=== PATIENT | male | born 1955 | race Caucasian/White ===

== ENCOUNTER → 2016-03-13 | Outpatient (CLI) | payer BC ==
[~2016-03-13] MED LIST: GLUCTAB7 PO; IBUP-1105 PO; METH1CAP PO; MULT-506 PO
[2016-03-13 14:37] LABS: BASO % 0.6 %; BASO ABS # 0.05 K/uL (0-0.2); COMPLETE YES; EOS % 2.3 %; HEMATOCRIT 42.5 % (42-52); IG% 0.2 %; LYMPH % 30.6 %; MEAN CELL VOLUME 88.2 fL (80-100); MEAN CORPUSCULAR HEMOGLOBIN 30.1 pg (25-34); MEAN CORPUSCULAR HGB CONC 34.1 g/dl (32-36); MEAN PLATELET VOLUME 10.9 fL (7.4-10.4); MONO % 7.6 %; NEUT % 58.7 %; PLATELET COUNT 269 K/uL (130-400); RED BLOOD COUNT 4.82 M/uL (4.7-6.1); WHITE BLOOD COUNT 8.18 K/uL (4.8-10.8)
[2016-03-17 16:42] LABS: C1 ESTERASE INHIB TC298 32 mg/dL (21-39)
== END | disposition home or self-care (01) ==
LOC: C.LAB1850 12:57
PROVIDERS: ATTEND Internal Medicine Pulmonary Disease
DX: T78.40XA Allergy, unspecified, initial encounter (principal); T88.7XXA Unspecified adverse effect of drug or medicament, initial encounter; T78.3XXA Angioneurotic edema, initial encounter; X58.XXXA Exposure to other specified factors, initial encounter

== ENCOUNTER → 2017-06-19 | Outpatient (CLI) | payer BC, OTHER ==
[2017-06-19 16:25] LABS: BASO % 1.1 %; BASO ABS # 0.07 K/uL (0-0.2); EOS % 1.4 %; EOS ABS # 0.09 K/uL (0-0.5); HEMATOCRIT 41.6 % (42-52); HEMOGLOBIN 14.2 g/dL (14.0-18.0); IG# 0.01 K/uL (0.00-0.02); LYMPH ABS # 2.08 K/uL (1.2-3.4); MEAN CELL VOLUME 89.1 fL (80-100); MEAN CORPUSCULAR HEMOGLOBIN 30.4 pg (25-34); MEAN CORPUSCULAR HGB CONC 34.1 g/dl (32-36); MEAN PLATELET VOLUME 10.4 fL (7.4-10.4); MONO % 8.6 %; MONO ABS # 0.56 K/uL (0.11-0.59); NEUT % 56.7 %; NEUT ABS # 3.68 K/uL (1.4-6.5); PLATELET COUNT 286 K/uL (130-400); RED CELL DISTRIBUTION WIDTH CV 13.7 % (11.5-14.5); RED CELL DISTRIBUTION WIDTH SD 44.4 fL (36.4-46.3); WHITE BLOOD COUNT 6.49 K/uL (4.8-10.8)
[2017-06-19 16:38] LABS: ALBUMIN 4.2 gm/dl (3.4-5.0); ALT/SGPT 37 U/L (12-78); BLOOD UREA NITROGEN 23 mg/dl (7-18); CALCIUM 9.3 mg/dl (8.5-10.1); CARBON DIOXIDE 24 mmol/L (21-32); CHOLESTEROL 202 mg/dl (0-200); CREATININE 0.98 mg/dl (0.60-1.40); GLUCOSE 77 mg/dl (70-99); POTASSIUM 4.6 mmol/L (3.5-5.1); SODIUM 138 mmol/L (136-145)
[2017-06-19 16:42] LABS: ALKALINE PHOSPHATASE 47 U/L (45-117); AST/SGOT 29 U/L (15-37); LDL CHOLESTEROL CALCULATED 133 mg/dl; TOTAL PROTEIN 7.7 gm/dl (6.4-8.2)
== END | disposition home or self-care (01) ==
LOC: C.LABBFT 12:29
PROVIDERS: ATTEND Internal Medicine
DX: E78.5 Hyperlipidemia, unspecified (principal); Z12.5 Encounter for screening for malignant neoplasm of prostate

== ENCOUNTER 2019-10-20 07:17 | Inpatient (IN) ==
[2019-10-20] MEDS ORDERED: ONDANSETRON INJ 2 MG/ML 2 ML VIAL IV STA (07:44)
[2019-10-20] MEDS ORDERED: DIAZEPAM 5 MG/ML INJ 10ML VIAL IV STA ×2 (07:44→08:51)
--- NOTE | 2019-10-20 07:48 | Emergency Department Note ---
General (ED) Blank Date of Service October 20, 2019 Ian Garcia DO PGY-3, saw and participated in the care of this patient. Resident Activity Tracking Resident Involvement: Resident Care Provided Care Provided: Adult ED
[2019-10-20] MEDS: SODIUM CHLORIDE 0.9% 1000ML 1,000 ML IV SCH ×3 (07:57→17:22)
[2019-10-20 07:58] LABS: Basophils # (auto) 0.01 K/uL (0-0.2); Basophils % (auto) 0.1 %; Eosinophils # (auto) 0.01 K/uL (0-0.5); Eosinophils % (auto) 0.1 %; Hematocrit (blood only) 36.5 % (42-52); Hemoglobin 11.9 g/dL (14.0-18.0); Immature Granulocytes # (auto) 0.03 K/uL (0.00-0.02); Immature Granulocytes % (auto) 0.3 %; Lymphocytes # (auto) 1.27 K/uL (1.2-3.4); Lymphocytes % (auto) 10.7 %; Mean Corpuscular Hemoglobin 26.5 pg (25-34); Mean Corpuscular Hgb Conc 32.6 g/dL (32-36); Mean Corpuscular Volume 81.3 fL (80-100); Mean Platelet Volume 10.5 fL (7.4-10.4); Monocytes # (auto) 0.64 K/uL (0.11-0.59); Monocytes % (auto) 5.4 %; Neutrophils # (auto) 9.86 K/uL (1.4-6.5); Neutrophils % (auto) 83.4 %; Platelet Count 237 K/uL (130-400); RDW Coefficient of Variation 14.6 % (11.5-14.5); RDW Standard Deviation 43.1 fL (36.4-46.3); Red Blood Count 4.49 M/uL (4.7-6.1); White Blood Count 11.82 K/uL (4.8-10.8)
[2019-10-20 08:04] LABS: Alanine Aminotransferase 27 U/L (12-78); Albumin Level 3.5 gm/dl (3.4-5.0); Aspartate Aminotransferase 39 U/L (15-37); BUN Creatinine Ratio 14.2 (10-20); Blood Urea Nitrogen 13 mg/dl (7-18); Calcium 8.7 mg/dl (8.5-10.1); Carbon Dioxide 26 mmol/L (21-32); Chloride 104 mmol/L (98-107); Est GFR (African American) 99.5; Est GFR (Non-African American) 85.8; Glucose 112 mg/dl (70-99); Potassium 3.8 mmol/L (3.5-5.1); Sodium 136 mmol/L (136-145)
[2019-10-20 08:09] LABS: Alkaline Phosphatase 42 U/L (45-117); Bilirubin,Total 0.7 mg/dl (0.2-1); Globulin 3.7 gm/dl (2.5-4.0); Total Protein 7.2 gm/dl (6.4-8.2); Troponin I < 0.015 ng/ml (0-0.045)
--- NOTE | 2019-10-20 09:54 | Magnetic Resonance Report ---
MR ANGIOGRAM OF THE BRAIN CLINICAL HISTORY: Dizziness. COMPARISON STUDY: MRI of the brain performed concurrently on 11/06/2019. TECHNIQUE: 3-D [id number] MR angiography of the intracranial circulation is performed. 3-D tumble views are created and assessed. IV contrast was not administered for this examination. The examinati on is degraded by motion artifact. FINDINGS: The internal carotid arteries are widely patent bilaterally, as are the anterior and middle cerebral arteries. The vertebrobasilar system and posterior cerebral arteries are widely patent. The vertebral arteries are codominant. There is no aneurysm, high-grade stenosis, or focal vessel cutoff seen throughout the intracranial circulation. Parenchymal abnormality is noted in the right temporal lobe. IMPRESSION: 1. Unremarkable MR angiogram of the brain noting a motion degraded examination. 2. Parenchymal abnormality is noted in the right temporal lobe. Correlate with the concurrently perfo rmed MRI of the brain. ACT 112: Negative or not required by law. Electronically signed by: Bruce Yang M.D. 10/20/2019 9:53 AM
[2019-10-20] MEDS ORDERED: GADOBUTROL 65ML VIAL IV ONE (10:02)
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
[2019-10-20 12:11] LABS: Lyme Ab IgG w/WB Rflx Negative (Negative); Lyme Ab IgM w/WB Rflx Negative (Negative)
[2019-10-20] MEDS ORDERED: ACYCLOVIR SOD 1,000 MG in DEXTROSE 5% 250 ML IV ONE (12:36)
[2019-10-20] MEDS ORDERED: VANCOMYCIN CONSULT ACTIVE PRN (12:36)
[2019-10-20] MEDS ORDERED: VANCOMYCIN HCL 2,750 MG in SODIUM CHLORIDE 0.9% 500 ML IV ONE (12:36)
[2019-10-20] MEDS ORDERED: cefTRIAXone SODIUM 2,000 MG/70 ML BAG IV STA (12:36)
[2019-10-20] MEDS ORDERED: AMPICILLIN 2,000 MG in SODIUM CHLOR 0.9% AD-VAN 100 ML IV STA (12:38)
[2019-10-20] MEDS ORDERED: DEXAMETHASONE SOD INJ 10 MG/ML VIAL IV STA (12:57)
[2019-10-20] MEDS ORDERED: HYDROmorphone INJ 0.5 MG/0.5 ML SYR ONE (13:05)
[2019-10-20 13:15] LABS: CSF Glucose 56 mg/dl (40-70); Total Protein CSF 151.5 mg/dl (15-45)
[2019-10-20 13:18] LABS: CSF Chemistry Tube # 1
[2019-10-20 13:19] LABS: Appearance CSF HAZY; Color CSF PINK; Mononuclear WBC CSF 83.3 %; Polynuclear WBC CSF 16.7 %; Red Blood Cell CSF (A) 4000 /uL (0-); White Blood Cell CSF (A) 12 /uL (0-5)
[2019-10-20 13:20] LABS: CSF Count Tube # 3; CSF Xanthrochromic Xanthochromic
--- NOTE | 2019-10-20 14:03 | History & Physical Report ---
Date of Service October 20, 2019 History of Present Illness Primary Care Provider: Myles Jaimes MD Allergies Allergy/AdvReac Type Severity Reaction Status Date / Time chlorpheniramine Allergy Unknown tongue Unverified 10/18/19 10:53 swelling phenylpropanolamine Allergy Unknown tongue Unverified 10/18/19 10:53 swelling Home Medications Home Medications Medication Instructions Recorded Confirmed Type uothzhsrsws-yqb-avrpzktdd-vitC 1 cap PO QAM 04/07/19 10/20/19 History [Glucosamine Complex-MSM] multivitamin 1 tab PO QAM 04/07/19 10/20/19 History ondansetron HCl [Zofran] 4 mg PO TID PRN 5 Days #15 tab 10/18/19 10/20/19 Rx oxycodone [Roxicodone] 5 mg PO Q8H PRN #9 tab 10/18/19 10/20/19 Rx acetaminophen 1,000 mg PO Q6H PRN 10/20/19 10/20/19 History ibuprofen 200 mg PO Q6H PRN 10/20/19 10/20/19 History Past Med/Surg History Medical History (Updated 10/18/19 @ 15:41 by Eliud Costa MD) History of angioedema reports multiple episdoes tongue swelling in the past. reports unable to pinpoint cause. last episode in mar/apr 2019 while ill with flu-like symptoms; resolved with antihistamine Osteoarthritis Shingles "small patch over my rib cage on the right side" x 1 week Surgical History History of colonoscopy History of oral surgery Family History Brother Alcoholism Father Prostate cancer Coronary heart disease Myocardial infarction Mother Hypertension Sister Diabetes Family/Other Breast cancer Other No family history of adverse response to anesthesia Denies family history of Ovarian cancer Colorectal cancer Social History Smoking Status: Never smoker Cigarettes Per Day: former social smoker; Second Hand Exposure: Yes (PREVIOUS EXPOSURE); Hx Alcohol Use: Yes Alcohol type: beer, wine and hard liquor Hx Substance Use: No Preferred Language: Swedish Communication Ability: Effective Plastic Fabricator Required: No Beliefs That Will Affect Care: None marital status: single Current Living Situation: Alone current occupational status: retired Feels Safe at Home: Yes Dental Care, Regularly: Yes Physical Activity Frequency: 3-4 Times per Week Seatbelt Use: always Sunscreen Use: Yes Results & Data Results & Data ([facility]) Vital Signs (Past 12 Hours) Vital Signs Temp Pulse Pulse Resp BP BP Pulse Ox 10/20/19 13:00 56 L 18 150/86 H 96 10/20/19 12:30 53 L 18 169/98 H 98 10/20/19 11:00 53 L 18 159/98 H 98 10/20/19 10:11 55 L 18 137/86 97 10/20/19 08:30 48 L 17 121/72 96 10/20/19 08:00 56 L 18 146/86 H 97 10/20/19 07:25 36.9 C 57 L 14 140/89 96 PG Care Time/CCT Total # of Minutes Spent Total Time Spent with Patient: Total time spent is greater than 50% in coordination of care (as documented) at patient's floor/unit and/or counseling patient: Coding
[2019-10-20] MEDS ORDERED: ACETAMINOPHEN 325 MG TAB PO PRN ×2 (14:23→16:39)
[2019-10-20] MEDS ORDERED: ALUMINUM/MAGNESIUM SUSP 30 ML UDC PO PRN ×2 (14:23→16:39)
[2019-10-20] MEDS ORDERED: MAGNESIUM HYDROXIDE SUSP 30 ML UDC PO PRN ×2 (14:23→16:39)
[2019-10-20] MEDS ORDERED: ONDANSETRON INJ 2 MG/ML 2 ML VIAL IV PRN ×2 (14:23→16:39)
[2019-10-20 14:24] LABS: Appearance CSF HAZY; Color CSF PINK; Red Blood Cell CSF (A) 4000 /uL (0-); White Blood Cell CSF (A) 10 /uL (0-5)
[2019-10-20 14:25] LABS: CSF Count Tube # 4
[2019-10-20 14:29] LABS: Cryptococcus neoformans/ga PCR Not Detected (NotDetected); Cytomegalovirus PCR Not Detected (NotDetected); Enterovirus PCR Not Detected (NotDetected); Escherichia coli K1 PCR Not Detected (NotDetected); Haemophilius influenzae PCR Not Detected (NotDetected); Herpes Simplex Virus 1 PCR Not Detected (NotDetected); Herpes Simplex Virus 2 PCR Not Detected (NotDetected); Human Herpes Virus 6 PCR Not Detected (NotDetected); Human Parechovirus PCR Not Detected (NotDetected); Listeria monocytogenes PCR Not Detected (NotDetected); Neisseria meningitidis PCR Not Detected (NotDetected); Streptococcus agalactiae PCR Not Detected (NotDetected); Streptococcus pneumoniae PCR Not Detected (NotDetected); Varicella Zoster Virus PCR Not Detected (NotDetected)
[2019-10-20 14:32] LABS: CSF Xanthrochromic Xanthochromic
[2019-10-20] MEDS ORDERED: PROPARACAINE 0.5% OP SOLN PER DROP CHARGE OP ONE (14:36)
[2019-10-20] MEDS ORDERED: PROPARACAINE 0.5% 225 DROPS/15 ML BTL ONE (15:35)
[2019-10-20] MEDS ORDERED: NITROGLYCERIN SL 0.4 MG/TAB TAB SL PRN (16:39)
[2019-10-20] MEDS ORDERED: ZOLPIDEM TARTRATE 5 MG TAB PO PRN (16:39)
[2019-10-20] MEDS ORDERED: MoRPHine SULFATE 2 MG/ML CARP IV PRN (16:39)
[2019-10-20] MEDS ORDERED: POLYETHYLENE (MIRALAX) 17 GM PACK PO PRN (16:39)
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
[2019-10-20] MEDS ORDERED: MECLIZINE HCL 25 MG TAB PO STA (17:58)
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
[2019-10-20] MEDS: AMPICILLIN 2,000 MG in SODIUM CHLOR 0.9% AD-VAN 100 ML IV SCH ×2 (18:37→23:00)
[2019-10-20] MEDS: VANCOMYCIN HCL 1,250 MG in SODIUM CHLORIDE 0.9% 250 ML IV SCH (20:38)
[2019-10-20] MEDS: ACYCLOVIR SOD 1,000 MG in DEXTROSE 5% 250 ML IV SCH (20:41)
--- NOTE | 2019-10-21 00:33 | Communication Note ---
Date of Service: October 21, 2019 Pt with R eye discomfort since MRI. Reported he tried to move/take of his mask which slipped and rubbed against his eye.On assessment visual acuity intact and sharp at 6 feet, pt denies visual change. PERLAA, EoM intact without pain. no scleral injection. Pt reports eye is 'uncomfortable'. Fluorescein dye exam performed, small corneal defect just lateral to the pupil appreciated. Counseling provided, pt started on erythromycin ointment OP QID. Do not recommend opthalmic analgesic topical (pt was using drops he had gotten earlier) as these can delay healing/epithelialization.
[2019-10-21] MEDS: ERYTHROMYCIN OP OINT 5 MG/GM 3.5 GM TUBE OP SCH ×5 (01:13→20:47)
[2019-10-21] MEDS: cefTRIAXone SODIUM 2,000 MG in DEXTROSE 5% 50 ML IV SCH ×3 (01:13→23:46)
[2019-10-21] MEDS: AMPICILLIN 2,000 MG in SODIUM CHLOR 0.9% AD-VAN 100 ML IV SCH ×6 (02:45→20:48)
[2019-10-21] MEDS: SODIUM CHLORIDE 0.9% 1000ML 1,000 ML IV SCH (03:05)
[2019-10-21] MEDS: ACYCLOVIR SOD 1,000 MG in DEXTROSE 5% 250 ML IV SCH ×3 (04:22→20:47)
[2019-10-21] MEDS: VANCOMYCIN HCL 1,250 MG in SODIUM CHLORIDE 0.9% 250 ML IV SCH ×3 (04:24→20:47)
--- NOTE | 2019-10-21 06:21 | Electrocardiogram Report ---
Test Reason : Blood Pressure : / mmHG Vent. Rate : 056 BPM Atrial Rate : 056 BPM P-R Int : 174 ms QRS Dur : 100 ms QT Int : 424 ms P-R-T Axes : 021 033 028 degrees QTc Int : 409 ms Sinus bradycardia Possible Left atrial enlargement Left ventricular hypertrophy Abnormal ECG When compared with ECG of 18-OCT-2019 09:56, No significant change was found Confirmed by Mac Fournier ([id number]) on 10/21/2019 6:21:13 AM Referred By: REFERRED SELF Confirmed By:Mac Fournier
[2019-10-21] MEDS ORDERED: MoRPHine SULFATE 2 MG/ML CARP IV PRN (07:17)
[2019-10-21] MEDS ORDERED: ONDANSETRON INJ 2 MG/ML 2 ML VIAL IV PRN (07:17)
[2019-10-21 07:32] LABS: Creatinine Clr Calc Pharmacy 92.2 ml/min; Est GFR (African American) 94.6; Est GFR (Non-African American) 81.6
[2019-10-21 07:41] LABS: Basophils # (auto) 0.01 K/uL (0-0.2); Basophils % (auto) 0.1 %; Hematocrit (blood only) 31.8 % (42-52); Hemoglobin 10.4 g/dL (14.0-18.0); Immature Granulocytes # (auto) 0.02 K/uL (0.00-0.02); Immature Granulocytes % (auto) 0.2 %; Lymphocytes # (auto) 1.27 K/uL (1.2-3.4); Lymphocytes % (auto) 11.3 %; Mean Corpuscular Hemoglobin 26.7 pg (25-34); Mean Corpuscular Hgb Conc 32.7 g/dL (32-36); Mean Corpuscular Volume 81.5 fL (80-100); Mean Platelet Volume 10.6 fL (7.4-10.4); Monocytes # (auto) 1.07 K/uL (0.11-0.59); Monocytes % (auto) 9.5 %; Neutrophils % (auto) 78.9 %; Platelet Count 227 K/uL (130-400); RDW Coefficient of Variation 14.7 % (11.5-14.5); RDW Standard Deviation 43.1 fL (36.4-46.3); White Blood Count 11.27 K/uL (4.8-10.8)
[2019-10-21 07:42] LABS: BUN Creatinine Ratio 12.8 (10-20); Calcium 8.4 mg/dl (8.5-10.1); Creatinine Clr Calc Pharmacy 91.2 ml/min; Est GFR (African American) 93.4; Est GFR (Non-African American) 80.6; Potassium 3.9 mmol/L (3.5-5.1)
[2019-10-21] MEDS: LIDOCAINE 5% 1 PATCH TD SCH (09:26)
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
[2019-10-21] MEDS ORDERED: VANCOMYCIN TROUGH ONE (11:30)
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
--- NOTE | 2019-10-21 13:39 | Pharmacy Report ---
Pharmacy Abx Dose Progress Nt - Date of Service October 21, 2019 - Pharmacy Dosing Scope The patient is currently receiving the following antimicrobial agents per Pharmacy consult: Vancomycin 1,250 mg IV every 8 hours Pt is also receiving (not per pharm consult) Acyclovir 1,000 mg IV Q8hrs Ampicilin 2,000 mg IV Q4hrs Ceftriaxone 2,000 mg IV Q12hrs - Objective Vital Signs (Past 12hrs): Vital Signs Temp Pulse Pulse Resp BP Pulse Ox 10/21/19 07:39 36.7 C 57 L 17 164/87 H 97 10/21/19 03:03 37 C 59 L 18 156/84 H 95 Lab Results (24hrs): Laboratory Tests (24 Hours) 10/21/19 10/21/19 10/21/19 11:19 06:49 06:49 WBC 11.27 H Neut # (Auto) 8.90 H Creatinine 0.98 Est Cr Clr Drug Dosing 91.2 Vancomycin Trough 13.5 10/21/19 06:49 WBC Neut # (Auto) Creatinine 0.97 Est Cr Clr Drug Dosing 92.2 Vancomycin Trough Micro Results: 10/20/19 12:15 Gram Stain - Final Cerebral Spinal Fluid - Assessment & Plan Assessment 64 year old M receiving Vanco/Acyclovir/Ampicillin/Ceftriaxone for treatment of possible meningitis Day # 2 of antimicrobial therapy Plan Vancomycin IV * Trough level of 13.5 mcg/mL is slightly subtherapeutic; however, dosing is not yet at steady state. Additional vancomycin accumulation likely to occur with repeated dosing. * Continue dose of 1,250 mg IV every 8 hours * Goal trough level for meningitis : 15 to 20 mcg/mL * Repeat Trough level ordered for: 10/22/19 @ 1200 (prior to 6th maintenance dose) No changes needed to Acyclovir/Ampicillin/Ceftriaxone dosing Pharmacy will continue to follow and will adjust dose/frequency as necessary. Thank you.
[2019-10-21] MEDS: MECLIZINE HCL 25 MG TAB PO PRN ×2 (14:31→22:38)
[2019-10-21] MEDS: LACTOBACILLUS ACIDOPHILUS (FLORANEX) TAB PO SCH (16:51)
[2019-10-22] MEDS: AMPICILLIN 2,000 MG in SODIUM CHLOR 0.9% AD-VAN 100 ML IV SCH ×4 (02:30→14:29)
[2019-10-22] MEDS: ACETAMINOPHEN 325 MG TAB PO PRN ×2 (03:38→12:10)
[2019-10-22] MEDS: VANCOMYCIN HCL 1,250 MG in SODIUM CHLORIDE 0.9% 250 ML IV SCH (03:39)
[2019-10-22] MEDS: ACYCLOVIR SOD 1,000 MG in DEXTROSE 5% 250 ML IV SCH ×2 (05:14→14:28)
[2019-10-22] MEDS: MECLIZINE HCL 25 MG TAB PO PRN ×2 (06:26→17:12)
[2019-10-22] MEDS: LACTOBACILLUS ACIDOPHILUS (FLORANEX) TAB PO SCH ×3 (07:34→17:13)
[2019-10-22] MEDS: OMEGA-3 (PURIFIED FISH OIL) 1 GM CAP PO SCH ×2 (07:34→20:24)
[2019-10-22] MEDS: POLYETHYLENE (MIRALAX) 17 GM PACK PO PRN (07:34)
[2019-10-22] MEDS: ERYTHROMYCIN OP OINT 5 MG/GM 3.5 GM TUBE OP SCH ×4 (07:35→20:24)
[2019-10-22] MEDS: LIDOCAINE 5% 1 PATCH TD SCH (07:35)
[2019-10-22] MEDS ORDERED: VANCOMYCIN TROUGH ONE (11:30)
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
[2019-10-22 12:41] LABS: Creatinine Clr Calc Pharmacy 95.3 ml/min; Est GFR (Non-African American) 83.7
[2019-10-22] MEDS: levETIRAcetam 500 MG TAB PO SCH ×2 (12:56→20:24)
--- NOTE | 2019-10-22 13:12 | Pharmacy Report ---
Pharmacy Abx Dose Short Note - Date of Service October 22, 2019 - Assessment & Plan Assessment 64 year old M receiving Vanco/Acyclovir/Ampicillin/Ceftriaxone for treatment of possible meningitis Day # 3 of antimicrobial therapy Plan Vancomycin * Trough level of 14.0 mcg/mL is subtherapeutic. * Change to 1500 mg (15mg/kg) IV every 8 hours * Goal trough level for meningitis : 15 to 20 mcg/mL * Trough level ordered for: 10/23/19 @1330 Pt will continue Acyclovir/Ampicillin/Ceftriaxone dosing as ordered Pharmacy will continue to follow and will adjust dose/frequency as necessary. Thank you.
[2019-10-22] MEDS ORDERED: VANCOMYCIN HCL 1,500 MG in SODIUM CHLORIDE 0.9% 500 ML IV SCH (14:00)
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
[2019-10-22] MEDS: cefTRIAXone SODIUM 2,000 MG in DEXTROSE 5% 50 ML IV SCH (14:28)
[2019-10-22] MEDS ORDERED: HydrALAZINE HCL 20 MG/ML VIAL IV PRN (16:29)
[2019-10-23] MEDS: MECLIZINE HCL 25 MG TAB PO PRN ×2 (01:15→10:50)
[2019-10-23] MEDS: ACETAMINOPHEN 325 MG TAB PO PRN ×3 (07:14→23:12)
[2019-10-23] MEDS: levETIRAcetam 500 MG TAB PO SCH ×2 (07:15→20:02)
[2019-10-23] MEDS: LACTOBACILLUS ACIDOPHILUS (FLORANEX) TAB PO SCH ×3 (07:15→18:33)
[2019-10-23] MEDS: ERYTHROMYCIN OP OINT 5 MG/GM 3.5 GM TUBE OP SCH ×4 (07:16→20:02)
[2019-10-23] MEDS: LIDOCAINE 5% 1 PATCH TD SCH (07:16)
[2019-10-23] MEDS: POLYETHYLENE (MIRALAX) 17 GM PACK PO PRN (07:16)
[2019-10-23] MEDS: OMEGA-3 (PURIFIED FISH OIL) 1 GM CAP PO SCH (07:16)
[2019-10-23 07:22] LABS: Basophils # (auto) 0.05 K/uL (0-0.2); Basophils % (auto) 0.6 %; Eosinophils # (auto) 0.19 K/uL (0-0.5); Eosinophils % (auto) 2.1 %; Hematocrit (blood only) 37.5 % (42-52); Hemoglobin 12.3 g/dL (14.0-18.0); Immature Granulocytes # (auto) 0.02 K/uL (0.00-0.02); Immature Granulocytes % (auto) 0.2 %; Lymphocytes # (auto) 1.54 K/uL (1.2-3.4); Lymphocytes % (auto) 17.1 %; Mean Corpuscular Hemoglobin 26.3 pg (25-34); Mean Corpuscular Hgb Conc 32.8 g/dL (32-36); Mean Corpuscular Volume 80.1 fL (80-100); Mean Platelet Volume 10.2 fL (7.4-10.4); Monocytes % (auto) 8.9 %; Neutrophils # (auto) 6.42 K/uL (1.4-6.5); Neutrophils % (auto) 71.1 %; Platelet Count 255 K/uL (130-400); RDW Coefficient of Variation 14.9 % (11.5-14.5); RDW Standard Deviation 42.5 fL (36.4-46.3); Red Blood Count 4.68 M/uL (4.7-6.1); White Blood Count 9.02 K/uL (4.8-10.8)
[2019-10-23 07:36] LABS: BUN Creatinine Ratio 14.1 (10-20); Calcium 8.3 mg/dl (8.5-10.1); Creatinine Clr Calc Pharmacy 107.6 ml/min; Est GFR (Non-African American) 92.3; Potassium 3.9 mmol/L (3.5-5.1)
--- NOTE | 2019-10-23 10:00 | CT Scan Report ---
CT head/brain wo con CLINICAL HISTORY: 64 years-old Male with head injury, headache. Acute head injury with headache TECHNIQUE: Multiple axial CT images of the head were obtained without contrast. A dose lowering tech nique was utilized adhering to the principles of ALARA. CT DOSE: 614.27 mGy.cm COMPARISON: Head CT 10/18/2019, brain MRI 10/20/2019 FINDINGS: No acute intracranial hemorrhage, midline shift or acute territorial infarct. Edema of the periventri cular right temporal lobe is redemonstrated which appears to have mild to moderately progressed from the 10/18/[address] This results in mild gyral expansion with sulcal effacement. Mild age-related involutional changes. The calvarium is intact. The paranasal sinuses, mastoid air cells, and middle ear cavities are clear . IMPRESSION: 1. No acute intracranial hemorrhage or midline shift. 2. Right temporal lobe edema redemonstrated, better characterized on comparison brain MRI from 020, most suspicious for a nonspecific encephalitis such as herpes encephalitis. The amount of edema has progressed from 10/18/2019. ACT 112: Negative or not required by law. The above report was generated using voice recognition software. It may contain grammatical, syntax o r spelling errors. Electronically signed by: eDshawn Shaffer M.D. 10/23/2019 9:59 AM
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
[2019-10-23] MEDS ORDERED: GADOBUTROL 65ML VIAL IV ONE (10:35)
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
[2019-10-23] MEDS ORDERED: VANCOMYCIN TROUGH ONE (13:30)
[2019-10-23] MEDS: dexAMETHasone 4 MG TAB PO SCH (14:33)
[2019-10-23] MEDS: ACYCLOVIR SOD 1,000 MG in DEXTROSE 5% 250 ML IV SCH ×2 (14:33→21:19)
--- NOTE | 2019-10-23 17:38 | Electroencephalogram ---
EEG Procedure Note Date of Service October 23, 2019 Start / End Times Start Time: 3:56 PM End Time: 4:16 PM Referring Physician Alberto Mejia MD History Right temporal lobe edema, encephalitis versus contusion, amnesia, encephalopathy Home Medication List Home Medications Medication Instructions Recorded Confirmed Type [id number] 1 cap PO QAM 04/07/19 10/20/19 History [Glucosamine Complex-MSM] multivitamin 1 tab PO QAM 04/07/19 10/20/19 History ondansetron HCl [Zofran] 4 mg PO TID PRN 5 Days #15 tab 10/18/19 10/20/19 Rx oxycodone [Roxicodone] 5 mg PO Q8H PRN #9 tab 10/18/19 10/20/19 Rx acetaminophen 1,000 mg PO Q6H PRN 10/20/19 10/20/19 History ibuprofen 200 mg PO Q6H PRN 10/20/19 10/20/19 History Inpatient Medication List Acetaminophen (Acetaminophen 325 Mg Tab) 650 mg PO Q6H PRN PRN Reason: Pain Stop: 11/20/19 07:16 Last Admin: 10/23/19 14:36 Dose: 650 mg Documented by: [id number] Admin: 10/23/19 07:14 Dose: 650 mg Documented by: [id number] Admin: 10/22/19 12:10 Dose: 650 mg Documented by: [id number] Admin: 10/22/19 03:38 Dose: 650 mg Documented by: [id number] Dexamethasone (Dexamethasone 4 Mg Tab) 4 mg PO DAILY [facility] Stop: 11/22/19 13:14 Last Admin: 10/23/19 14:33 Dose: 4 mg Documented by: [id number] Erythromycin (Erythromycin Op Oint 5 Mg/Gm 3.5 Gm Tube) 1 appln OP QID [facility] Stop: 10/31/19 08:59 Last Admin: 10/23/19 12:44 Dose: 1 appln Documented by: [id number] Admin: 10/23/19 07:16 Dose: 1 appln Documented by: [id number] Admin: 10/22/19 20:24 Dose: 1 appln Documented by: [id number] Admin: 10/22/19 17:13 Dose: 1 appln Documented by: [id number] Admin: 10/22/19 12:10 Dose: 1 appln Documented by: [id number] Admin: 10/22/19 07:35 Dose: 1 appln Documented by: [id number] Admin: 10/21/19 20:47 Dose: 1 appln Documented by: [id number] Admin: 10/21/19 16:51 Dose: 1 appln Documented by: [id number] Admin: 10/21/19 12:04 Dose: 1 appln Documented by: [id number] Admin: 10/21/19 08:27 Dose: 1 appln Documented by: [id number] Admin: 10/21/19 01:13 Dose: 1 appln Documented by: [id number] Hydralazine HCl (Hydralazine Hcl 20 Mg/Ml Vial) 10 mg IV Q6H PRN PRN Reason: Hypertension Stop: 11/21/19 16:28 Last Admin: 10/23/19 02:58 Dose: 10 mg Documented by: [id number] Acyclovir Sodium 1,000 mg/ (Dextrose) 270 mls @ 250 mls/hr IV Q8H [facility]; Protocol Stop: 11/02/19 13:59 Last Infusion: 10/23/19 17:04 Dose: 0 mls/hr Documented by: [id number] Admin: 10/23/19 14:33 Dose: 250 mls/hr Documented by: [id number] Lactobacillus Acidophilus (Lactobacillus Acidophilus (Floranex) Tab) 4 tab PO TIDM [facility] Stop: 11/20/19 16:59 Last Admin: 10/23/19 12:44 Dose: 4 tab Documented by: [id number] Admin: 10/23/19 07:15 Dose: 4 tab Documented by: [id number] Admin: 10/22/19 17:13 Dose: 4 tab Documented by: [id number] Admin: 10/22/19 12:09 Dose: 4 tab Documented by: [id number] Admin: 10/22/19 07:34 Dose: 4 tab Documented by: [id number] Admin: 10/21/19 16:51 Dose: 4 tab Documented by: [id number] Levetiracetam (Levetiracetam 500 Mg Tab) 500 mg PO BID [facility] Stop: 11/21/19 11:44 Last Admin: 10/23/19 07:15 Dose: 500 mg Documented by: [id number] Admin: 10/22/19 20:24 Dose: 500 mg Documented by: [id number] Admin: 10/22/19 12:56 Dose: 500 mg Documented by: [id number] Lidocaine (Lidocaine 5% 1 Patch) 1 patch TD QAM [facility] Stop: 11/20/19 08:59 Last Admin: 10/23/19 07:16 Dose: 1 patch Documented by: [id number] Admin: 10/22/19 07:35 Dose: 1 patch Documented by: [id number] Admin: 10/21/19 09:26 Dose: Not Given Documented by: [id number] Meclizine HCl (Meclizine Hcl 25 Mg Tab) 25 mg PO Q8H PRN PRN Reason: Vertigo Stop: 11/20/19 09:55 Last Admin: 10/23/19 10:50 Dose: 25 mg Documented by: [id number] Admin: 10/23/19 01:15 Dose: 25 mg Documented by: [id number] Admin: 10/22/19 17:12 Dose: 25 mg Documented by: [id number] Admin: 10/22/19 06:26 Dose: 25 mg Documented by: [id number] Admin: 10/21/19 22:38 Dose: 25 mg Documented by: [id number] Admin: 10/21/19 14:31 Dose: 25 mg Documented by: [id number] Miscellaneous (Remove Lidoderm Patch) 1 ea N/A DAILY@2100 [facility] Stop: 11/20/19 20:59 Last Admin: 10/22/19 20:24 Dose: 1 ea Documented by: [id number] Admin: 10/21/19 20:46 Dose: Not Given Documented by: [id number] Polyethylene Glycol (Polyethylene (Miralax) 17 Gm Pack) 17 gm PO DAILY PRN PRN Reason: Constipation Stop: 11/19/19 14:22 Last Admin: 10/23/19 07:16 Dose: 17 gm Documented by: [id number] Admin: 10/22/19 07:34 Dose: 17 gm Documented by: [id number] Discontinued Medications Acetaminophen (Acetaminophen 325 Mg Tab) 650 mg PO Q4H PRN PRN Reason: Pain or Fever Stop: 11/19/19 16:38 Last Admin: 10/21/19 05:47 Dose: 650 mg Documented by: [id number] Dexamethasone (Dexamethasone Sod Inj 10 Mg/Ml Vial) 10 mg IV NOW STA Stop: 10/20/19 12:58 Last Admin: 10/20/19 13:09 Dose: 10 mg Documented by: [id number] Diazepam (Diazepam 5 Mg/Ml Inj 10ml Vial) 2.5 mg IV NOW STA Stop: 10/20/19 07:45 Last Admin: 10/20/19 07:57 Dose: 2.5 mg Documented by: [id number] Diazepam (Diazepam 5 Mg/Ml Inj 10ml Vial) 2.5 mg IV NOW STA Stop: 10/20/19 08:52 Last Admin: 10/20/19 10:08 Dose: 2.5 mg Documented by: [id number] Fish Oil (Hartly-3 (Purified Fish Oil) 1 Gm Cap) 1 gm PO BID [facility] Stop: 11/21/19 08:59 Last Admin: 10/23/19 07:16 Dose: 1 gm Documented by: [id number] Admin: 10/22/19 20:24 Dose: 1 gm Documented by: [id number] Admin: 10/22/19 07:34 Dose: 1 gm Documented by: [id number] Gadobutrol (Gadobutrol 65ml Vial) 10.5 ml IV ONCE ONE Stop: 10/20/19 10:03 Last Admin: 10/20/19 10:03 Dose: 10.5 ml Documented by: [id number] Gadobutrol (Gadobutrol 65ml Vial) 10 ml IV ONCE ONE Stop: 10/23/19 10:36 Last Admin: 10/23/19 10:36 Dose: 10 ml Documented by: [id number] Hydromorphone HCl (Hydromorphone Inj 0.5 Mg/0.5 Ml Syr) Confirm Administered Dose 0.5 mg .ROUTE .STK-MED ONE Stop: 10/20/19 13:06 Last Admin: 10/20/19 13:08 Dose: 0.5 mg Documented by: [id number] Sodium Chloride (Nss 1000ml) 1,000 mls @ 125 mls/hr IV .Q8H [facility] Stop: 11/19/19 07:44 Last Infusion: 10/20/19 22:15 Dose: 0 mls/hr Documented by: [id number] Admin: 10/20/19 17:21 Dose: 125 mls/hr Documented by: [id number] Infusion: 10/20/19 17:21 Dose: 0 mls/hr Documented by: [id number] Infusion: 10/20/19 13:47 Dose: 0 mls/hr Documented by: [id number] Infusion: 10/20/19 10:08 Dose: 125 mls/hr Documented by: [id number] Infusion: 10/20/19 08:51 Dose: 0 mls/hr Documented by: [id number] Admin: 10/20/19 07:57 Dose: 125 mls/hr Documented by: [id number] Ceftriaxone Sodium (Rocephin) 2,000 mg in 70 mls @ 140 mls/hr IV NOW STA Stop: 10/20/19 13:05 Last Infusion: 10/20/19 13:43 Dose: 0 mls/hr Documented by: [id number] Admin: 10/20/19 13:09 Dose: 140 mls/hr Documented by: [id number] Acyclovir Sodium 1,000 mg/ (Dextrose) 270 mls @ 250 mls/hr IV NOW ONE Stop: 10/20/19 13:40 Last Infusion: 10/20/19 17:24 Dose: 0 mls/hr Documented by: [id number] Admin: 10/20/19 13:39 Dose: 250 mls/hr Documented by: [id number] Vancomycin HCl 2,750 mg/ (Sodium Chloride) 555 mls @ 200 mls/hr IV NOW ONE Stop: 10/20/19 15:22 Last Infusion: 10/20/19 17:22 Dose: 0 mls/hr Documented by: [id number] Admin: 10/20/19 13:37 Dose: 200 mls/hr Documented by: [id number] Ampicillin Sodium 2,000 mg/ (Sodium Chloride) 100 mls @ 200 mls/hr IV NOW STA Stop: 10/20/19 13:07 Last Infusion: 10/20/19 14:19 Dose: 0 mls/hr Documented by: [id number] Admin: 10/20/19 13:43 Dose: 200 mls/hr Documented by: [id number] Sodium Chloride (Nss 1000ml) 1,000 mls @ 125 mls/hr IV .Q8H [facility] Stop: 10/21/19 06:29 Last Infusion: 10/21/19 11:11 Dose: 0 mls/hr Documented by: [id number] Admin: 10/21/19 03:05 Dose: 125 mls/hr Documented by: [id number] Infusion: 10/21/19 01:22 Dose: 125 mls/hr Documented by: [id number] Admin: 10/20/19 17:22 Dose: 125 mls/hr Documented by: [id number] Ceftriaxone Sodium 2,000 mg/ (Dextrose) 50 mls @ 100 mls/hr IV Q12H [facility]; Protocol Stop: 10/31/19 00:59 Last Admin: 10/22/19 14:28 Dose: Not Given Documented by: [id number] Infusion: 10/22/19 00:16 Dose: 0 mls/hr Documented by: [id number] Admin: 10/21/19 23:46 Dose: 100 mls/hr Documented by: [id number] Infusion: 10/21/19 11:48 Dose: 0 mls/hr Documented by: [id number] Admin: 10/21/19 11:10 Dose: 100 mls/hr Documented by: [id number] Infusion: 10/21/19 01:45 Dose: 0 mls/hr Documented by: [id number] Admin: 10/21/19 01:13 Dose: 100 mls/hr Documented by: [id number] Acyclovir Sodium 1,000 mg/ (Dextrose) 270 mls @ 250 mls/hr IV Q8H [facility] Stop: 10/30/19 20:59 Last Admin: 10/22/19 14:28 Dose: Not Given Documented by: [id number] Infusion: 10/22/19 06:19 Dose: 0 mls/hr Documented by: [id number] Admin: 10/22/19 05:14 Dose: 250 mls/hr Documented by: [id number] Infusion: 10/21/19 21:52 Dose: 0 mls/hr Documented by: [id number] Admin: 10/21/19 20:47 Dose: 250 mls/hr Documented by: [id number] Infusion: 10/21/19 13:31 Dose: 0 mls/hr Documented by: [id number] Admin: 10/21/19 12:05 Dose: 250 mls/hr Documented by: [id number] Infusion: 10/21/19 05:30 Dose: 0 mls/hr Documented by: [id number] Admin: 10/21/19 04:22 Dose: 250 mls/hr Documented by: [id number] Infusion: 10/20/19 21:50 Dose: 0 mls/hr Documented by: [id number] Admin: 10/20/19 20:41 Dose: 250 mls/hr Documented by: [id number] Ampicillin Sodium 2,000 mg/ (Sodium Chloride) 100 mls @ 200 mls/hr IV Q4H [facility] Stop: 10/30/19 17:59 Last Admin: 10/22/19 14:29 Dose: Not Given Documented by: [id number] Admin: 10/22/19 10:30 Dose: Not Given Documented by: [id number] Infusion: 10/22/19 05:44 Dose: 0 mls/hr Documented by: [id number] Admin: 10/22/19 05:14 Dose: 200 mls/hr Documented by: [id number] Infusion: 10/22/19 03:00 Dose: 0 mls/hr Documented by: [id number] Admin: 10/22/19 02:30 Dose: 200 mls/hr Documented by: [id number] Infusion: 10/21/19 21:18 Dose: 0 mls/hr Documented by: [id number] Admin: 10/21/19 20:48 Dose: 200 mls/hr Documented by: [id number] Infusion: 10/21/19 19:07 Dose: 0 mls/hr Documented by: [id number] Admin: 10/21/19 18:37 Dose: 200 mls/hr Documented by: [id number] Infusion: 10/21/19 14:57 Dose: 0 mls/hr Documented by: [id number] Admin: 10/21/19 14:06 Dose: 200 mls/hr Documented by: [id number] Infusion: 10/21/19 09:26 Dose: 0 mls/hr Documented by: [id number] Admin: 10/21/19 08:28 Dose: 200 mls/hr Documented by: [id number] Infusion: 10/21/19 06:30 Dose: 0 mls/hr Documented by: [id number] Admin: 10/21/19 05:47 Dose: 200 mls/hr Documented by: [id number] Infusion: 10/21/19 03:22 Dose: 0 mls/hr Documented by: [id number] Admin: 10/21/19 02:45 Dose: 200 mls/hr Documented by: [id number] Infusion: 10/20/19 23:52 Dose: 0 mls/hr Documented by: [id number] Admin: 10/20/19 23:00 Dose: 200 mls/hr Documented by: [id number] Infusion: 10/20/19 19:15 Dose: 0 mls/hr Documented by: [id number] Admin: 10/20/19 18:37 Dose: 200 mls/hr Documented by: [id number] Vancomycin HCl 1,250 mg/ (Sodium Chloride) 275 mls @ 125 mls/hr IV Q8H [facility] Stop: 10/30/19 19:59 Last Infusion: 10/22/19 05:51 Dose: 0 mls/hr Documented by: [id number] Admin: 10/22/19 03:39 Dose: 125 mls/hr Documented by: [id number] Infusion: 10/21/19 22:59 Dose: 0 mls/hr Documented by: [id number] Admin: 10/21/19 20:47 Dose: 125 mls/hr Documented by: [id number] Infusion: 10/21/19 14:57 Dose: 0 mls/hr Documented by: [id number] Admin: 10/21/19 12:04 Dose: 125 mls/hr Documented by: [id number] Infusion: 10/21/19 07:26 Dose: 0 mls/hr Documented by: [id number] Admin: 10/21/19 04:24 Dose: 125 mls/hr Documented by: [id number] Infusion: 10/20/19 22:50 Dose: 0 mls/hr Documented by: [id number] Admin: 10/20/19 20:38 Dose: 125 mls/hr Documented by: [id number] Vancomycin HCl 1,500 mg/ (Sodium Chloride) 530 mls @ 200 mls/hr IV Q8H [facility] Stop: 11/01/19 13:59 Last Admin: 10/22/19 14:29 Dose: Not Given Documented by: [id number] Meclizine HCl (Meclizine Hcl 25 Mg Tab) 25 mg PO NOW STA Stop: 10/20/19 17:59 Last Admin: 10/20/19 19:30 Dose: 25 mg Documented by: [id number] Morphine Sulfate (Morphine Sulfate 2 Mg/Ml Carp) 2 mg IV Q30M PRN PRN Reason: Chest Pain Stop: 11/03/19 16:38 Last Admin: 10/20/19 23:32 Dose: 2 mg Documented by: [id number] Ondansetron HCl (Ondansetron Inj 2 Mg/Ml 2 Ml Vial) 4 mg IV NOW STA Stop: 10/20/19 07:45 Last Admin: 10/20/19 07:57 Dose: 4 mg Documented by: [id number] Ondansetron HCl (Ondansetron Inj 2 Mg/Ml 2 Ml Vial) 4 mg IV Q6H PRN PRN Reason: Nausea Stop: 11/19/19 16:38 Last Admin: 08/13/20 23:32 Dose: 4 mg Documented by: [id number] Proparacaine HCl (Proparacaine 0.5% Op Soln Per Drop Charge) 1 drops OP PREOP ONE Stop: 10/20/19 14:37 Last Admin: 10/20/19 15:38 Dose: 1 drops Documented by: [id number] Proparacaine HCl (Proparacaine 0.5% 225 Drops/15 Ml Btl) Confirm Administered Dose 225 drops .ROUTE .STK-MED ONE Stop: 10/20/19 15:36 Last Admin: 10/20/19 15:38 Dose: Not Given Documented by: [id number] Description This is a 21 electrode EEG with a single channel dedicated to limited EKG. The electrodes were placed in accordance with the International 10-20 system. There is a posterior dominant rhythm of 10 Hz which is symmetrically distributed and attenuates with eye opening. There is a normal anterior to posterior organization. Photic stimulation is unremarkable. Hyperventilation is not performed. There is admixed theta activity seen in the latter part of the study. There are a few vertex waves and sleep spindles appreciated as well. There is no focal or lateralized slowing. No epileptiform abnormalities appreciated. Interpretation This is a normal-appearing awake/sleepy EEG. A normal EEG does not completely exclude a diagnosis of seizure disorder. Further clinical correlation may be needed. [facility] EEG Procedure Codes Indication for Procedure (1) Encephalitis: (2) Encephalopathy: (3) Amnesia: Neurology Neurology: 66761 EEG include record awake & sleepy
[2019-10-24] MEDS: ACYCLOVIR SOD 1,000 MG in DEXTROSE 5% 250 ML IV SCH ×3 (06:01→21:27)
[2019-10-24] MEDS: ACETAMINOPHEN 325 MG TAB PO PRN (06:01)
[2019-10-24 06:40] LABS: Basophils # (auto) 0.01 K/uL (0-0.2); Basophils % (auto) 0.1 %; Eosinophils # (auto) 0.04 K/uL (0-0.5); Eosinophils % (auto) 0.3 %; Hematocrit (blood only) 38.5 % (42-52); Hemoglobin 12.7 g/dL (14.0-18.0); Immature Granulocytes # (auto) 0.04 K/uL (0.00-0.02); Immature Granulocytes % (auto) 0.3 %; Lymphocytes # (auto) 1.89 K/uL (1.2-3.4); Mean Corpuscular Hemoglobin 26.3 pg (25-34); Mean Corpuscular Volume 79.9 fL (80-100); Mean Platelet Volume 10.3 fL (7.4-10.4); Monocytes # (auto) 0.89 K/uL (0.11-0.59); Monocytes % (auto) 7.5 %; Neutrophils # (auto) 8.96 K/uL (1.4-6.5); Neutrophils % (auto) 75.8 %; Platelet Count 269 K/uL (130-400); RDW Coefficient of Variation 14.7 % (11.5-14.5); RDW Standard Deviation 42.1 fL (36.4-46.3); Red Blood Count 4.82 M/uL (4.7-6.1); White Blood Count 11.83 K/uL (4.8-10.8)
[2019-10-24 07:00] LABS: BUN Creatinine Ratio 16.4 (10-20); Calcium 8.9 mg/dl (8.5-10.1); Creatinine Clr Calc Pharmacy 103.5 ml/min; Est GFR (Non-African American) 91.4; Potassium 4.2 mmol/L (3.5-5.1)
[2019-10-24] MEDS: dexAMETHasone 4 MG TAB PO SCH (08:31)
[2019-10-24] MEDS: ERYTHROMYCIN OP OINT 5 MG/GM 3.5 GM TUBE OP SCH ×4 (08:31→20:06)
[2019-10-24] MEDS: levETIRAcetam 500 MG TAB PO SCH ×2 (08:31→20:05)
[2019-10-24] MEDS: LACTOBACILLUS ACIDOPHILUS (FLORANEX) TAB PO SCH ×3 (08:31→16:25)
[2019-10-24] MEDS: LIDOCAINE 5% 1 PATCH TD SCH (08:32)
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
--- NOTE | 2019-10-24 18:35 | Billing Data ---
Date of Service October 24, 2019 Coding Level of Care Code 79712 Subseq Hosp Care Lvl 3
[2019-10-25] MEDS: ACYCLOVIR SOD 1,000 MG in DEXTROSE 5% 250 ML IV SCH (06:30)
[2019-10-25] MEDS: ACETAMINOPHEN 325 MG TAB PO PRN (07:45)
[2019-10-25] MEDS: LACTOBACILLUS ACIDOPHILUS (FLORANEX) TAB PO SCH ×2 (07:46→11:33)
[2019-10-25] MEDS: dexAMETHasone 4 MG TAB PO SCH (07:46)
[2019-10-25] MEDS: LIDOCAINE 5% 1 PATCH TD SCH (07:47)
[2019-10-25] MEDS: levETIRAcetam 500 MG TAB PO SCH (07:47)
[2019-10-25] MEDS: ERYTHROMYCIN OP OINT 5 MG/GM 3.5 GM TUBE OP SCH (07:48)
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
--- NOTE | 2019-10-25 19:50 | Billing Data ---
Date of Service October 25, 2019 Coding Level of Care Code D/C Day Management <30 mins
[2019-10-26 17:13] LABS: West Nile Virus PCR Not Detected (Not Detected); West Nile Virus, PCR, CSF Not Detected (Not Detected)
== END 2019-10-25 13:23 | disposition home health service (06) | DRG 97 ==
LOC: ED 07:17 → 2S 14:24 → SUATTDRO 14:24 → 2S 15:21